=== PATIENT | male | born 1975 | race Caucasian/White ===

== ENCOUNTER → 2018-05-26 14:56 | Outpatient (CLI) | payer OTHER, SELFPAY ==
--- NOTE | 2018-05-26 | DI.MRI.S_ITS ---
PROCEDURE: MR KNEE LT WO CON INDICATIONS: Left knee pain post injury TECHNIQUE: Noncontrast sagittal PD fast spin echo and T2 fast spin echo with fat saturation, sagittal 3-D FLASH with fat saturation; coronal T1 spin echo and PD fast spin echo with fat saturation, and axial PD fast spin echo with fat saturation through the knee. COMPARISON: [facility], CR, XR KNEE ARTHRITIC SERIES LT, 05/15/2018, 11:13. FINDINGS: Image quality: Excellent. Menisci: Linear signal intensity horizontally traverses the posterior horn medial meniscus, demonstrating superior articular surface extension, indicating horizontal tearing. Lateral meniscus is intact. Cruciate ligaments: The anterior and posterior cruciate ligaments appear intact. Medial structures: The medial collateral ligament appears intact. Visualized portions of the pes anserinus tendons appear normal. No abnormal bursal fluid. Lateral structures: The lateral collateral ligament, long and short heads of the biceps femoris tendon appear intact. The popliteus tendon appears normal. Iliotibial band appears normal. Anterior structures: The quadriceps and patellar tendons appear intact. Patellar alignment is normal. No femoral trochlear dysplasia or ventral trochlear prominence. No edema in the infrapatellar fat pad. There is mild prepatellar fluid. Bones and cartilage: No bone marrow contusions or fractures. The cartilage of the medial and lateral femorotibial compartments, as well as the patellofemoral compartment, appears normal in thickness. Joint space: There is a small knee joint effusion and a small Wolf's cyst. A small ganglion cyst along the popliteus is present. Normal appearing synovial plicae are incidentally noted. IMPRESSION: 1. Posterior horn medial meniscal tear. 2. Prepatellar bursitis. 3. Small knee joint effusion and small Wolf's cyst. Small ganglion cyst along the popliteus. Dictated by: Rodriguez Gunter M.D. on 05/26/2018 at 15:59 Approved by: Rodriguez Gunter M.D. on 05/26/2018 at 16:00
== END ==
PROVIDERS: Visit Provider Orthopaedic Surgery
DX: S83.242A Other tear of medial meniscus, current injury, left knee, initial encounter (principal); M70.42 Prepatellar bursitis, left knee; M25.462 Effusion, left knee; M67.462 Ganglion, left knee
CPT/HCPCS: 73721

== ENCOUNTER → 2022-08-16 10:31 | Outpatient (CLI) | payer OTHER, SELFPAY ==
[2022-08-16 11:35] LABS: COVID19 -Nasal RAPID Negative (Negative)
== END ==
PROVIDERS: PCP Nurse Practitioner Family; Visit Provider Surgery
DX: Z20.822 Contact with and (suspected) exposure to COVID-19 (principal); Z01.812 Encounter for preprocedural laboratory examination
CPT/HCPCS: 87635; C9803

== ENCOUNTER 2022-08-17 09:58 | Day surgery (SDC) | payer OTHER, SELFPAY ==
[2022-08-17 10:47] VITALS: BP 128/89; PULSE 72; RESP 16; TEMP 36.3; O2SAT 95; BMI 26.7
[2022-08-17] MEDS: LACTATED RINGERS 1,000 ML 200 ML IV (10:55)
--- NOTE | 2022-08-17 11:40 | PM.HP.1 ---
History of Present Illness History of Present Illness Date Patient Seen: 08/17/22 Time Patient Seen: 11:40 Chief complaint: Colonoscopy Narrative: The patient presents for colorectal screening. He would a previous colonoscopy years ago for rectal bleeding which demonstrated hemorrhoids. No personal or family history of colon cancer. On further history denies any recent gastrointestinal symptoms. No nausea, vomiting, abdominal pain, loss of appetite, unexplained weight loss, change in bowel habits, or blood per rectum. Patient History Family & Social History Social History: household members spouse Tobacco & Substance use: Smoking Status Never smoker alcohol intake current alcohol intake frequency a few times a week Substance Use Type does not use Meds Home Medications and Allergies Home Medications Medication Instructions Recorded Confirmed Type sodium,potassium,mag sulfates 17.5 See Rx Instructions PO .COMPLEX 07/29/22 Rx gram-3.13 gram-1.6 gram oral soln #354 mL (Suprep Bowel Prep Kit) Allergies Allergy/AdvReac Type Severity Reaction Status Date / Time No Known Drug Allergies Allergy Verified 08/17/22 10:46 Exam Vital Signs (past 8 hours): - 08/17/22 10:47 Temperature 97.4 F L Pulse Rate 72 Respiratory Rate 16 Blood Pressure 128/89 Pulse Oximetry 95 Oxygen Delivery Method Room Air Oxygen Delivery Method Room Air Narrative Exam Narrative: General adult male alert oriented no acute distress Abdomen soft nontender nondistended Assessment & Plan Assessment & Plan narrative: The patient requires colorectal screening and colonoscopy is recommended. Technical details were discussed. Risks, benefits, alternatives explained. Risks including but not limited to myocardial infarction, aspiration, bleeding, pain, missed lesion, incomplete examination, need for further radiographic studies, colonic perforation, and need for major abdominal surgery were discussed. All questions were answered to their satisfaction, and they are in agreement with this plan. Time Spent With Patient Critical Care time: I spent a total of [] minutes of critical care time on this patient's care today; this time is exclusive of procedural time.
--- NOTE | 2022-08-17 12:09 | PM.OP.COLON ---
Operative Date/Time/Diagnoses Date of procedure: 08/17/22 Time of procedure: 12:09 Pre-op diagnosis: Colorectal screening Post-op diagnosis: same Procedure & Clinicians Study performed: Colonoscopy Same procedure as scheduled: Yes Indications: Colorectal screening Surgeon: Marino Godinez Procedure Notes Procedure in detail: The history and physical was performed/updated and the patient is ASA class is 1. The procedure was discussed in detail with the patient. Potential risks complications including infection, bleeding, missed diagnosis, perforation, need for surgery, and were explained. Their questions were answered and informed consent was obtained. Patient was brought to the procedure room and placed standard monitoring equipment. The patient's vital signs were monitored continuously throughout the entire procedure. Prior to starting time-out was performed. The patient was placed in the left lateral recumbent position. Procedural sedation was administered by anesthesia. Examination began with a thorough inspection of the perianal area there was no evidence of fissures, fistulae, external hemorrhoids or cutaneous malignancy. The colonoscopy scope was then placed into the anal canal and was advanced to the cecum, which was identified by the ileocecal valve, the appendiceal orifice and the confluence of the taenia. The scope was then slowly withdrawn examining colon thoroughly in all directions, irrigating it of any residual stool. FINDINGS 1. No masses polyps or inflammation 2. Normal healthy colon The patient tolerated the procedure well. They will be discharged once criteria are met. The prep was of good/excellent quality. The withdrawl time was 6 minutes. Specimen(s): none sent Impression: Normal colonoscopy Post-procedure Recommendations: Colonoscopy in 10 years and High fiber diet Disposition: same day surgery
[2022-08-17 12:41] VITALS: BP 100/67; PULSE 67; RESP 10; TEMP 36.3; O2SAT 97
[2022-08-17 12:47] VITALS: BP 110/60; PULSE 74; RESP 18; TEMP 36.3; O2SAT 99
[2022-08-17 12:55] VITALS: BP 117/84; PULSE 70; RESP 14; TEMP 36.6; O2SAT 99
== END 2022-08-17 13:00 | disposition home or self-care (01) ==
PROVIDERS: PCP Nurse Practitioner Family; Referring Provider Surgery; Visit Provider Surgery
PROC: 0DJD8ZZ Inspection of Lower Intestinal Tract, Via Natural or Artificial Opening Endoscopic (ICD-10-PCS; CPT 45378; principal; 2022-08-17 11:15)
DX: Z12.11 Encounter for screening for malignant neoplasm of colon (principal)
CPT/HCPCS: 45378; J2704

== ENCOUNTER → 2025-01-15 08:04 | Outpatient (CLI) | payer OTHER, SELFPAY ==
--- NOTE | 2025-01-15 08:07 | DI.CT.S_ITS ---
PROCEDURE: CT SOFT TISSUE NECK W CON INDICATIONS: omari's angina, recent dental surgery TECHNIQUE: After the administration of intravenous contrast, 3.0 mm axial sections acquired from the sella to the aortic arch. 3 mm thick coronal and sagittal reformats were generated. For radiation dose reduction, the following was used: automated exposure control. COMPARISON: None. FINDINGS: Skull Base: The visualized intracranial contents, skull, and orbits are unremarkable. Visualized paranasal sinuses are clear. Pharynx and Larynx: The nasopharyngeal airway is patent and midline. Parapharyngeal soft tissues including palatine tonsils and base of the tongue are normal. Retropharyngeal space unremarkable. Normal appearance of the false and true vocal cords. Muscles and Fascial Planes: Fascial planes are well maintained. No abscess or mass lesion. Small focus of subcutaneous edema unencapsulated is noted overlying the left masseter muscle. Nonspecific hypodense fluid collection overlying the right masseter measures 1.5 by 0.4 cm probably reflects accessory Lymph Nodes: No evidence of adenopathy. Small nonenlarged reactive appearing deep cervical nodes noted Vasculature: Unremarkable. Submandibular and Parotid Glands: Normal in size and attenuation. Nonspecific hypodense fluid collection overlying the right masseter measures 1.5 by 0.4 cm probably reflects accessory parotid tissue Thyroid: Unremarkable. No enlarged or calcified nodules. Bones: No acute fracture. No osteolytic or blastic lesion is evident. Normal bone mineralization. Lung Apices: The visualized lung apices are clear. IMPRESSION: Small focus of left-sided subcutaneous cellulitis. No abscess or airway compromise Approved by: Truman Aguilar M.D. on 01/15/2025 at 9:23
== END ==
LOC: CT 08:05
PROVIDERS: PCP Nurse Practitioner Family; Referring Provider Family Medicine; Visit Provider Family Medicine
DX: K12.2 Cellulitis and abscess of mouth (principal); K13.79 Other lesions of oral mucosa; Z98.890 Other specified postprocedural states
CPT/HCPCS: 70491; Q9967